=== PATIENT | female | born 1955 | race Caucasian/White ===

== ENCOUNTER 2016-08-16 18:26 | Emergency (ER) | payer SELFPAY ==
[~2016-08-16] VITALS: Ht 167.6 cm; Wt 69.0 kg
[2016-08-16 18:33] VITALS: BP 156/82; PULSE 67; RESP 16; TEMP 98.6; O2SAT 98
--- NOTE | 2016-08-16 18:57 | PD ---
HPI Chief Complaint: Bite or Sting Time Seen by Provider: 18:50 Travel History International Travel<30 days: No Contact w/Intl Traveler<30days: No Traveled to known affect area: No History of Present Illness HPI Patient 61-year-old female presents with worsening right fourth toe pain over the past week. Patient states that she was bit by her dog 3 weeks ago and she' s noticed the pain is gradually worsening the patient's had some redness of her toe. Denies any fever denies abdominal pain states the dogs up-to-date on shots. PFSH Past Medical History Medical History: Denies Significant Hx Hx Anticoagulant Therapy: No Diabetes: No ?: Not Social History Alcohol Use: Yes Tobacco Use: Yes Allergies-Medications (Allergen,Severity, Reaction): Coded Allergies: Levaquin (Verified Allergy, Severe, 08/16/16) Reported Meds & Prescriptions Reported Meds & Active Scripts Active Augmentin (Amoxicillin-Clavulanate) 875-125 Mg Tab 1 Tab PO BID 10 Days Ultram (Tramadol HCl) 50 Mg Tab 50 Mg PO Q6H PRN Review of Systems Except as stated in HPI: all other systems reviewed are Neg Physical Exam Narrative GENERAL: Well-nourished, well-developed patient. SKIN: Some minimal swelling and erythema of the right fourth digit. This is from the MTP joint distally. Full nontender range of motion, there is a small abrasion on the medial aspect of his toe which is healing well. Cap refill is brisk. No extension of the cellulitis proximal to the MTP joint. HEAD: Normocephalic. EYES: No scleral icterus. No injection or drainage. NECK: Supple, trachea midline. No JVD or lymphadenopathy. CARDIOVASCULAR: Regular rate and rhythm without murmurs, gallops, or rubs. RESPIRATORY: Breath sounds equal bilaterally. No accessory muscle use. GASTROINTESTINAL: Abdomen soft, non-tender, nondistended. MUSCULOSKELETAL: No cyanosis. Minimal right fourth toe edema otherwise no edema seen. Full nontender range of motion. BACK: Nontender without obvious deformity. No CVA tenderness. Data Data Last Documented VS Vital Signs Date Time Temp Pulse Resp B/P Pulse Ox O2 Delivery O2 Flow Rate FiO2 08/16/16 20:07 16 08/16/16 19:36 65 171/79 98 Room Air 08/16/16 18:33 98.6 Orders Toe (Min 2vws) (08/16/16 ) Amoxicil-Clavulanate (Augmentin) (08/16/16 19:00) Acetamin-Hydrocod 325-5 Mg ([place] 5-325 (08/16/16 19:00) MDM Medical Decision Making Medical Screen Exam Complete: Yes Emergency Medical Condition: Yes Differential Diagnosis Cellulitis, fracture, Dog bite, rabies exposure unlikely. Narrative Course Patient roomed emergency department, x-ray reviewed and shows no foreign body and no evidence of fracture. Patient was given Augmentin dose in the emergency department, I don't think her cellulitis warrants IV antibiotics at this time. Discussed with her to observe at home and expect some relief within the next 48 hours, take anabiotic until gone. If there are any concerns or worsening erythema she should return to the emergency department. Recommend follow-up with primary care physician. Diagnosis Primary Impression: Cellulitis of toe of right foot Med/Other Pt SpecificInfo: Prescription(s) given Scripts Amoxicillin-Clavulanate (Augmentin)875-125 Mg Tab1 Tab PO BID 10 Days Ref 0 Prov:Jeremías Dorsey MD 08/16/16 Tramadol (Ultram)50 Mg Tab50 Mg PO Q6H PRN (PAIN) #10 TAB Ref 0 Prov:Jeremías Dorsey MD 08/16/16 Disposition: 01 DISCHARGE HOME Condition: Stable Jeremías Dorsey MD Aug 16, 2016 18:57
[2016-08-16] MEDS ORDERED: AMOXICILLIN/CLAVULANATE K 875 MG TAB PO ONE (19:00)
[2016-08-16] MEDS ORDERED: ACETAMINOPHEN/HYDROcodone 325 MG/5 MG TAB PO ONE (19:00)
[2016-08-16 19:36] VITALS: BP 171/79; PULSE 65; RESP 16; O2SAT 98
--- NOTE | 2016-08-16 19:46 | RADHPO ---
EXAM DATE/TIME: 08/16/2016 19:11 [facility] COMPARISON: No previous studies available for comparison. INDICATIONS : Dog bite right 4th toe. MEDICAL HISTORY : None. SURGICAL HISTORY : None. ENCOUNTER: Initial ACUITY: 3 weeks PAIN SCORE: 4/10 LOCATION: Right 4th toe. FINDINGS: Three views of the right foot fourth digit demonstrate no fracture or dislocation. The Lisfranc joint appears intact. Mineralization is within normal limits and there is no significant arthropathy. No r adiopaque foreign body is identified. There is soft tissue swelling of the fourth digit. CONCLUSION: Soft tissue swelling of the fourth digit. No radiopaque foreign body is identified and no fracture is seen. Gallo Gutiérrez MD on August 16, 2016 at 19:42 Board Certified Radiologist. This report was verified electronically.
[2016-08-16 20:07] VITALS: RESP 16
[2016-08-16] MEDS ORDERED: AUGM875T3 PO (20:08)
[2016-08-16] MEDS ORDERED: ULTR50TA5 PO (20:08)
== END 2016-08-16 20:25 | disposition home or self-care (01) ==
LOC: PHED 18:26
DX: L03.031 Cellulitis of right toe (principal); S90.474A Other superficial bite of right lesser toe(s), initial encounter; Z72.0 Tobacco use; W54.0XXA Bitten by dog, initial encounter; Y93.9 Activity, unspecified; Y92.9 Unspecified place or not applicable; Y99.8 Other external cause status
CPT/HCPCS: 73660; 99284

== ENCOUNTER 2016-09-19 12:24 | Emergency (ER) | payer SELFPAY ==
[~2016-09-19] VITALS: Ht 167.6 cm; Wt 71.0 kg
[~2016-09-19 12:24] MED LIST: AUGM875T3 PO; ULTR50TA5 PO
[2016-09-19 12:26] VITALS: BP 190/84; PULSE 78; RESP 16; TEMP 98.2; O2SAT 98
[2016-09-19] MEDS ORDERED: LEVO75TA3 PO (12:52)
[2016-09-19 12:55] VITALS: RESP 18; O2SAT 98
[2016-09-19] MEDS ORDERED: SODIUM CHLOR 0.9% 1000 ML INJ 1,000 ML IV ONE (13:00)
[2016-09-19] MEDS ORDERED: SODIUM CHLORIDE 0.9% FLUSH 10 ML FLUSH IVF PRN (13:00)
[2016-09-19 13:11] LABS: AUTOMATED NEUTROPHIL # 6.4 TH/MM3 (1.8-7.7); BASOPHIL % 0.5 % (0.0-2.0); EOSINOPHIL # 0.4 TH/MM3 (0-0.4); EOSINOPHIL % 4.4 % (0.0-4.0); HEMATOCRIT 37.5 % (35.0-46.0); HEMO FLAGS DIFF FINAL; LYMPH % 20.3 % (9.0-44.0); LYMPHOCYTE # 1.9 TH/MM3 (1.0-4.8); MEAN CELL VOLUME 90.1 FL (80.0-100.0); MEAN CORPUSCULAR HEMOGLOBIN 31.5 PG (27.0-34.0); MONO % 7.7 % (0.0-8.0); NEUT % 67.1 % (16.0-70.0); PLATELET COUNT 214 TH/MM3 (150-450); RED BLOOD COUNT 4.16 MIL/MM3 (4.00-5.30); RED CELL DISTRIBUTION WIDTH 12.6 % (11.6-17.2); WHITE BLOOD COUNT 9.4 TH/MM3 (4.0-11.0)
--- NOTE | 2016-09-19 13:12 | PD ---
HPI Chief Complaint: General Weakness Time Seen by Provider: 12:37 Travel History International Travel<30 days: No Contact w/Intl Traveler<30days: No Traveled to known affect area: No History of Present Illness HPI Patient is a 61-year-old female who presents to emergency room with multiple complaints. Patient reports that she has been feeling well for the past few months. Patient reports that she has been feeling weak, reports that she has had a cough, fevers and chills which have been intermittent in nature. Patient reports that symptoms have gotten worse today, reports that she feels bloated and swollen all over. Reports that she is not eating alot of salt products, and she is not eating out excessively. Patient reports that she just feels "tired and bloated." Reports that she is a smoker, she has been feeling sob and has been wheezing. Reports no recent travels/sick contact. Reports "I just don't feel like myself and I feel weak." Denies chest pain at this time. No other c/ o. Patient also reports that she recently moved to [place] from [place] - reports that her doctor increased her levothyroxine from 50 micrograms to 75 g a month ago. Patient concerned that she may have problems with her thyroid at this time. PFSH Past Medical History Hx Anticoagulant Therapy: No Diabetes: No Kidney Stones: Yes Immunizations Current: Yes Thyroid Disease: Yes Influenza Vaccination: No ?: Not LMP: MENOPAUSAL Past Surgical History Genitourinary Surgery: Yes (KIDNEY STONE REMOVAL) Social History Alcohol Use: Yes (OCC) Tobacco Use: Yes (1/2 PPD) Substance Use: No Allergies-Medications (Allergen,Severity, Reaction): Coded Allergies: Levaquin (Verified Allergy, Severe, 09/19/16) Reported Meds & Prescriptions Reported Meds & Active Scripts Active Reported Levothyroxine (Levothyroxine Sodium) 75 Mcg Tab 75 Mcg PO DAILY Review of Systems General / Constitutional: Positive: Fever, Chills Eyes: No: Visual changes HENT: No: Headaches Cardiovascular: No: Chest Pain or Discomfort Respiratory: Positive: Cough, Shortness of Breath Gastrointestinal: No: Abdominal Pain Genitourinary: No: Dysuria Musculoskeletal: No: Pain Skin: No Rash Neurologic: Positive: Weakness Psychiatric: No: Depression Endocrine: No: Polydipsia Hematologic/Lymphatic: No: Easy Bruising Physical Exam Narrative GENERAL: mild distress SKIN: Focused skin assessment warm/dry. HEAD: Atraumatic. Normocephalic. EYES: Pupils equal and round. No scleral icterus. No injection or drainage. ENT: No nasal bleeding or discharge. Mucous membranes pink and moist. NECK: Trachea midline. No JVD. CARDIOVASCULAR: Regular rate and rhythm. No murmur appreciated. RESPIRATORY: No accessory muscle use. Clear to auscultation. Breath sounds equal bilaterally. GASTROINTESTINAL: Abdomen soft, non-tender, nondistended. Hepatic and splenic margins not palpable. MUSCULOSKELETAL: No obvious deformities. No clubbing. No cyanosis. No edema. NEUROLOGICAL: Awake and alert. No obvious cranial nerve deficits. Motor grossly within normal limits. Normal speech. PSYCHIATRIC: Appropriate mood and affect; insight and judgment normal. Data Data Last Documented VS Vital Signs Date Time Temp Pulse Resp B/P Pulse Ox O2 Delivery O2 Flow Rate FiO2 09/19/16 12:55 18 98 Room Air 09/19/16 12:26 98.2 78 190/84 Orders Electrocardiogram (09/19/16 12:46) Complete Blood Count With Diff (09/19/16 12:46) Comprehensive Metabolic Panel (09/19/16 12:46) Influenzae A/B Antigen (09/19/16 12:46) Chest, Pa & Lat (09/19/16 12:46) Ecg Monitoring (09/19/16 12:46) Iv Access Insert/Monitor (09/19/16 12:46) Oximetry (09/19/16 12:46) Sodium Chloride 0.9% Flush (Ns Flush) (09/19/16 13:00) Thyroid Stimulating Hormone (09/19/16 12:46) Urinalysis - C+S If Indicated (09/19/16 12:46) D-Dimer (09/19/16 12:46) Sodium Chlor 0.9% 1000 Ml Inj (Ns 1000 M (09/19/16 13:00) Albuterol-Ipratropium Neb (Duoneb Neb) (09/19/16 13:45) Labs Laboratory Tests Test 09/19/16 09/19/16 12:55 13:45 White Blood Count 9.4 TH/MM3 Red Blood Count 4.16 MIL/MM3 Hemoglobin 13.1 GM/DL Hematocrit 37.5 % Mean Corpuscular Volume 90.1 FL Mean Corpuscular Hemoglobin 31.5 PG Mean Corpuscular Hemoglobin 35.0 % Concent Red Cell Distribution Width 12.6 % Platelet Count 214 TH/MM3 Mean Platelet Volume 9.1 FL Neutrophils (%) (Auto) 67.1 % Lymphocytes (%) (Auto) 20.3 % Monocytes (%) (Auto) 7.7 % Eosinophils (%) (Auto) 4.4 % Basophils (%) (Auto) 0.5 % Neutrophils # (Auto) 6.4 TH/MM3 Lymphocytes # (Auto) 1.9 TH/MM3 Monocytes # (Auto) 0.7 TH/MM3 Eosinophils # (Auto) 0.4 TH/MM3 Basophils # (Auto) 0.0 TH/MM3 CBC Comment DIFF FINAL Differential Comment D-Dimer Quantitative (PE/DVT) LESS THAN 0.19 MG/L FEU Sodium Level 144 MEQ/L Potassium Level 3.7 MEQ/L Chloride Level 111 MEQ/L Carbon Dioxide Level 24.5 MEQ/L Anion Gap 9 MEQ/L Blood Urea Nitrogen 17 MG/DL Creatinine 0.71 MG/DL Estimat Glomerular Filtration 84 ML/MIN Rate Random Glucose 107 MG/DL Calcium Level 8.7 MG/DL Total Bilirubin 0.8 MG/DL Aspartate Amino Transf 16 U/L (AST/SGOT) Alanine Aminotransferase 21 U/L (ALT/SGPT) Alkaline Phosphatase 70 U/L Total Protein 6.8 GM/DL Albumin 3.6 GM/DL Thyroid Stimulating Hormone 2.510 uIU/ML 3rd Gen Urine Collection Type CLEAN CATCH Urine Color STRAW Urine Turbidity SLIGHT Urine pH 6.0 Urine Specific [place] 1.010 Urine Protein NEG mg/dL Urine Glucose (UA) NEG mg/dL Urine Ketones NEG mg/dL Urine Occult Blood TRACE Urine Nitrite NEG Urine Bilirubin NEG Urine Leukocyte Esterase NEG Urine RBC 0-3 /hpf Urine Squamous Epithelial 0-5 /hpf Cells Urine Amorphous Sediment FEW Microscopic Urinalysis Comment CULT NOT INDICATED Urine Collection Time 1345 MDM Medical Decision Making Medical Screen Exam Complete: Yes Emergency Medical Condition: Yes Interpretation(s) EKG at 1257: NSR at 77bpm, qt/qtc: 388/420, no acute st or t wave changes Vital Signs Date Time Temp Pulse Resp B/P Pulse Ox O2 Delivery O2 Flow Rate FiO2 09/19/16 12:46 16 98 Room Air 09/19/16 12:26 98.2 78 16 190/84 98 Differential Diagnosis Differential includes hypothyroidism, electrolyte abnormality, acs, arrhythmia, UTI, pneumonia, dehydration, DVT, PE, COPD exacerbation Narrative Course Patient is a 61-year-old female with multiple complaints. Patient reports that for the past few months, she has not been feeling well. Patient reports that she has been feeling weak, has been having cough, fevers and chills, night sweats. That she feels bloated all over, reports that she feels anxious and agitated and feels as if she is gaining a lot of weight. Patient here for evaluation of possible hypothyroidism as patient concerned that her thyroid numbers are abnormal as patient does have history of hypothyroidism. Her primary care doctor recently increased her dose of levothyroxine 8 months ago from 50 g to 75 g. Vital Signs Date Time Temp Pulse Resp B/P Pulse Ox O2 Delivery O2 Flow Rate FiO2 09/19/16 12:46 16 98 Room Air 09/19/16 12:26 98.2 78 16 190/84 98 Patient with generalized symptoms, there are no focal findings on her physical exam. Patient is afebrile with a temperature of 98.2. Patient's pulse rate is 78, patient not tachycardic. Respiratory rate is 16 and she is 98% on room air. Will obtain CBC, CMP, d-dimer, x-ray of the chest, will check for influenza, will give IVF. TSH ordered as well. Laboratory Tests Test 09/19/16 12:55 White Blood Count 9.4 TH/MM3 (4.0-11.0) Red Blood Count 4.16 MIL/MM3 (4.00-5.30) Hemoglobin 13.1 GM/DL (11.6-15.3) Hematocrit 37.5 % (35.0-46.0) Mean Corpuscular Volume 90.1 FL (80.0-100.0) Mean Corpuscular Hemoglobin 31.5 PG (27.0-34.0) Mean Corpuscular Hemoglobin 35.0 % Concent (32.0-36.0) Red Cell Distribution Width 12.6 % (11.6-17.2) Platelet Count 214 TH/MM3 (150-450) Mean Platelet Volume 9.1 FL (7.0-11.0) Neutrophils (%) (Auto) 67.1 % (16.0-70.0) Lymphocytes (%) (Auto) 20.3 % (9.0-44.0) Monocytes (%) (Auto) 7.7 % (0.0-8.0) Eosinophils (%) (Auto) 4.4 % (0.0-4.0) Basophils (%) (Auto) 0.5 % (0.0-2.0) Neutrophils # (Auto) 6.4 TH/MM3 (1.8-7.7) Lymphocytes # (Auto) 1.9 TH/MM3 (1.0-4.8) Monocytes # (Auto) 0.7 TH/MM3 (0-0.9) Eosinophils # (Auto) 0.4 TH/MM3 (0-0.4) Basophils # (Auto) 0.0 TH/MM3 (0-0.2) CBC Comment DIFF FINAL Differential Comment D-Dimer Quantitative (PE/DVT) LESS THAN 0.19 MG/L FEU (0.00-0.50) Sodium Level 144 MEQ/L (136-145) Potassium Level 3.7 MEQ/L (3.5-5.1) Chloride Level 111 MEQ/L (98-107) Carbon Dioxide Level 24.5 MEQ/L (21.0-32.0) Anion Gap 9 MEQ/L (5-15) Blood Urea Nitrogen 17 MG/DL (7-18) Creatinine 0.71 MG/DL (0.50-1.00) Estimat Glomerular Filtration 84 ML/MIN (>89) Rate Random Glucose 107 MG/DL (74-106) Calcium Level 8.7 MG/DL (8.5-10.1) Total Bilirubin 0.8 MG/DL (0.2-1.0) Aspartate Amino Transf 16 U/L (15-37) (AST/SGOT) Alanine Aminotransferase 21 U/L (10-53) (ALT/SGPT) Alkaline Phosphatase 70 U/L (45-117) Total Protein 6.8 GM/DL (6.4-8.2) Albumin 3.6 GM/DL (3.4-5.0) Thyroid Stimulating Hormone 2.510 uIU/ML 3rd Gen (0.358-3.740) Last Impressions Chest X-Ray 09/19/16 [id number] Signed Impressions: Service Date/Time: Monday, September 19, 2016 13:17 - CONCLUSION: No acute cardiopulmonary disease. Siomara Fournier MD CBC: WNL BMP: chloride 111, bun 17, cr 0.71, sodium 144, potassium 3.7 ast: 16 alt: 21 tsh 2.5 D.dimer: less than 0.19 xray of chest: no acute cardiopulmonary disease all labs and studies reviewed with patient in detail. patient feeling better reports, "i'm just tired" Patient given referral to the [facility] as she lost her insurance and has no follow up Signs and symptoms of when to return to the emergency room as needed patient in detail. Vital Signs Date Time Temp Pulse Resp B/P Pulse Ox O2 Delivery O2 Flow Rate FiO2 09/19/16 12:55 18 98 Room Air 09/19/16 12:46 16 98 Room Air 09/19/16 12:26 98.2 78 16 190/84 98 Diagnosis Primary Impression: Weakness generalized Patient Instructions: General Instructions Additional Instructions: Please give patient a copy of her labs and studies at discharge Please return to ER as needed Please follow up with your primary care doctor Return to ER if symptoms worsen or persist Please drink plenty of fluids Disposition: 01 DISCHARGE HOME Condition: Stable Lindsay Cadena DO Sep 19, 2016 13:12
[2016-09-19 13:20] LABS: CHLORIDE 111 MEQ/L (98-107); POTASSIUM 3.7 MEQ/L (3.5-5.1); SODIUM (NA) 144 MEQ/L (136-145)
[2016-09-19 13:24] LABS: ANION GAP 9 MEQ/L (5-15); BICARBONATE 24.5 MEQ/L (21.0-32.0); BLOOD UREA NITROGEN 17 MG/DL (7-18)
[2016-09-19 13:27] LABS: ALT (GPT) 21 U/L (10-53); AST (GOT) 16 U/L (15-37); GLOMERULAR FILTRATION RATE 84 ML/MIN (>89)
[2016-09-19 13:28] LABS: TOTAL BILIRUBIN ADULT 0.8 MG/DL (0.2-1.0)
[2016-09-19 13:30] LABS: ALKALINE PHOSPHATASE 70 U/L (45-117)
[2016-09-19] MEDS ORDERED: RESP: ALBUTEROL 2.5 MG/IPRATROPIUM 0.5 MG NEB (SCH) INH ONE (13:45)
--- NOTE | 2016-09-19 13:47 | RADRPT ---
EXAM DATE/TIME: 09/19/2016 13:17 [facility] COMPARISON: No previous studies available for comparison. INDICATIONS : Cough, weak, fever, short of breath MEDICAL HISTORY : None. SURGICAL HISTORY : bilateral shoulder surgery ENCOUNTER: Initial ACUITY: 2 months PAIN SCORE: 4/10 LOCATION: Bilateral chest FINDINGS: The lungs are clear without infiltrate, nodule, or mass. There is no appreciable pleural effusion fo r technique. Heart and mediastinum are unremarkable. CONCLUSION: No acute cardiopulmonary disease. Siomara Fournier MD on September 19, 2016 at 13:45 Board Certified Radiologist. This report was verified electronically.
[2016-09-19 13:50] VITALS: BP 196/83; PULSE 68; RESP 16; O2SAT 98
[2016-09-19 14:00] LABS: BLOOD, URINE TRACE (NEG); GLUCOSE,URINE NEG (NEG); KETONE, URINE NEG (NEG); NITRITE,URINE NEG (NEG)
[2016-09-19 14:28] LABS: METHOD OF COLLECTION CLEAN CATCH; URINE COLOR STRAW (YELLW/STRAW)
[2016-09-19 14:29] LABS: COMMENT (UR) CULT NOT INDICATED; CULTURE IF INDICATED CULT NOT INDICATED; RBC, URINE 0-3 /hpf (0-3); SQUAMOUS EPITHELIAL CELL URINE 0-5 /hpf (0-5)
[2016-09-19 14:50] VITALS: BP 173/82; PULSE 76; RESP 16; O2SAT 98
--- NOTE | 2016-09-19 16:53 | EKG ---
Date Performed: 09/19/2016 Time Performed: 12:57:27 PTAGE: 61 years EKG: Sinus rhythm LOW QRS VOLTAGE IN PRECORDIAL LEADS NONSPECIFIC T-WAVE ABNORMALITY BORDERLINE ECG NO PREVIOUS TRACING DOCTOR: Adriel Ramírez Interpretating Date/Time 09/19/2016 16:51:23
== END 2016-09-19 15:38 | disposition home or self-care (01) ==
LOC: PHED 12:24
DX: R53.1 Weakness (principal); R53.83 Other fatigue; R05 Cough; R14.0 Abdominal distension (gaseous); R06.02 Shortness of breath; R06.2 Wheezing; E07.9 Disorder of thyroid, unspecified; R94.31 Abnormal electrocardiogram [ECG] [EKG]; F17.200 Nicotine dependence, unspecified, uncomplicated; Z87.442 Personal history of urinary calculi
CPT/HCPCS: 71020; 80053; 81001; 84443; 85025; 85379; 87804; 93005; 94664; 96360; 96361; 99285; J7030